=== PATIENT | female | born 1955 | race Hispanic/Latino ===

== ENCOUNTER 2021-12-29 08:04 | Outpatient (CLI) | payer MEDICARE ==
[2021-12-29] MEDS ORDERED: Iopamidol 370 76% 100 ML VIAL ONE (15:42)
== END 2021-12-29 08:05 | disposition home or self-care (01) ==
LOC: CT 08:04
PROVIDERS: ATTEND Internal Medicine Hematology & Oncology
DX: C49.A2 Gastrointestinal stromal tumor of stomach (principal); D50.0 Iron deficiency anemia secondary to blood loss (chronic); K83.8 Other specified diseases of biliary tract; Z98.890 Other specified postprocedural states; Z90.49 Acquired absence of other specified parts of digestive tract
CPT/HCPCS: 74177; 82565; Q9967

== ENCOUNTER 2022-05-25 08:00 | Outpatient (CLI) | payer MEDICARE ==
[2022-05-25] MEDS ORDERED: Iopamidol 370 76% 100 ML VIAL ONE (15:56)
== END 2022-05-25 08:01 | disposition home or self-care (01) ==
LOC: BICCT 08:00 → CT 08:01
PROVIDERS: ATTEND Internal Medicine Hematology & Oncology
DX: C49.A2 Gastrointestinal stromal tumor of stomach (principal); D50.0 Iron deficiency anemia secondary to blood loss (chronic); K57.30 Diverticulosis of large intestine without perforation or abscess without bleeding; Z90.49 Acquired absence of other specified parts of digestive tract; Z90.710 Acquired absence of both cervix and uterus
CPT/HCPCS: 74177; 82565

== ENCOUNTER 2023-06-01 08:01 | Outpatient (CLI) | payer MEDICARE ==
[2023-06-01] MEDS ORDERED: Iopamidol 370 76% 100 ML VIAL ONE (11:12)
== END 2023-06-01 08:02 | disposition home or self-care (01) ==
LOC: CT 08:01
PROVIDERS: ATTEND Internal Medicine Hematology & Oncology
DX: C49.A2 Gastrointestinal stromal tumor of stomach (principal)
CPT/HCPCS: 74177; 82565

== ENCOUNTER 2024-07-17 08:09 | Outpatient (CLI) | payer MEDICARE, MEDICAID ==
[2024-07-17] MEDS ORDERED: Iopamidol 370 76% 100 ML VIAL ONE (09:08)
== END 2024-07-17 08:10 | disposition home or self-care (01) ==
LOC: CT 08:09
PROVIDERS: ATTEND Internal Medicine Hematology & Oncology
DX: C49.A2 Gastrointestinal stromal tumor of stomach (principal); D50.0 Iron deficiency anemia secondary to blood loss (chronic)
CPT/HCPCS: 36415; 74177; 82565